=== PATIENT | male | born 1960 | race Caucasian/White ===

== ENCOUNTER → 2018-10-18 | Outpatient (CLI) | payer OTHER ==
--- NOTE | 2018-10-18 14:10 | XR ---
EXAMINATION TYPE: XR sinus DATE OF EXAM: 10/18/2018 CLINICAL HISTORY: Facial pain , headache. TECHNIQUE: Haque, Wiley, and lateral image of the skull are obtained. COMPARISON: None. FINDINGS: Osseous structures are intact. There does appear to be mucosal thickening involving the lef t maxillary sinus. Slight nasal septal deviation noted. No definite air-fluid level seen. IMPRESSION: Correlate for left maxillary sinusitis.
== END | disposition home or self-care (01) ==
LOC: RADXRMAIN 13:43
PROVIDERS: ATTEND Nurse Practitioner Family
DX: J01.00 Acute maxillary sinusitis, unspecified (principal)
CPT/HCPCS: 70220

== ENCOUNTER 2019-12-04 17:25 | Inpatient (IN) | payer OTHER ==
[2019-12-04 18:14] LABS: Basophils # (A) 0.1 k/uL (0-0.2); Basophils % (A) 1 %; Eosinophils # (A) 0.3 k/uL (0-0.7); Eosinophils % (A) 3 %; HCT 49.7 % (39.0-53.0); HGB 16.7 gm/dL (13.0-17.5); Lymphocytes # (A) 2.5 k/uL (1.0-4.8); Lymphocytes % (A) 25 %; MCH 29.8 pg (25.0-35.0); MCHC 33.5 g/dL (31.0-37.0); MCV 88.8 fL (80.0-100.0); Mean Platelet Volume 7.4; Monocytes # (A) 0.7 k/uL (0-1.0); Monocytes % (A) 7 %; Neutrophils # (A) 6.3 k/uL (1.3-7.7); Neutrophils % (A) 63 %; Platelet Count 233 k/uL (150-450); RDW 14.5 % (11.5-15.5)
[2019-12-04 18:27] LABS: Albumin 4.3 g/dL (3.5-5.0); Calcium 9.8 mg/dL (8.4-10.2); Magnesium 2.4 mg/dL (1.6-2.3); Partial Thromboplastin Time 23.2 sec (22.0-30.0); Potassium 4.1 mmol/L (3.5-5.1); Prothrombin Time 10.5 sec (9.0-12.0); Total Bilirubin 0.8 mg/dL (0.2-1.3)
[2019-12-04] MEDS ORDERED: LABETALOL 5 MG/ML VIAL MDV IVP STA (18:28)
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
--- NOTE | 2019-12-04 19:02 | XR ---
EXAMINATION: XR chest 2V DATE AND TIME: 12/04/2019 6:02 PM CLINICAL INDICATION: PHH; Chest Pain dyspnea TECHNIQUE: Departmental protocol COMPARISON: 07/15/2015 FINDINGS: The lungs are clear. The pleural spaces are negative. The cardiac silhouette is not enlarged. The skeletal structures and soft tissues are negative for acute findings. IMPRESSION: NO ACUTE PROCESS.
[2019-12-04] MEDS ORDERED: ASPIRIN 325 MG TAB PO STA (19:07)
[2019-12-04] MEDS ORDERED: HEPARIN SODIUM,PORCINE 5,000 UNIT/ML 1 ML VIAL IV ONE (19:07)
[2019-12-04] MEDS ORDERED: HEPARIN SODIUM,PORCINE 5,000 UNIT/ML 1 ML VIAL IV PRN (19:07)
[2019-12-04] MEDS ORDERED: NITROGLYCERIN SL TABS 0.4 MG TAB SUBLINGUAL PRN (19:21)
[2019-12-04] MEDS ORDERED: MORPHINE SULFATE 2 MG/ML SYRINGE IVP PRN (19:21)
--- NOTE | 2019-12-04 19:43 | CT ---
EXAMINATION TYPE: CT angio chest with contrast and with 3-D reconstruction renderings DATE OF EXAM: 12/04/2019 6:57 PM COMPARISON: Chest radiographs 12/04/2019 HISTORY: chest pain and SOB CT DLP: 669.7 mGycm Automated exposure control for dose reduction was used. CONTRAST: CTA scan of the thorax is performed with IV Contrast, patient injected with 100 mL of Isovu e 370, pulmonary embolism protocol. Three-D renderings. FINDINGS: LUNGS AND PLEURAL SPACES: The airways are unremarkable. The lungs are bilaterally clear and well expa nded with the exception of a nonspecific 2.2 cm mean diameter zone of groundglass opacity in the medi al right lower lobe seen on axial images 103 through 115. The pleural spaces are negative. MEDIASTINUM: There is satisfactory enhancement of the pulmonary artery and its branches; there is no CT evidence for pulmonary embolism. The aorta is unremarkable. There is no cardiomegaly, but there is evidence of left ventricular hypertrophy and multifocal coronary calcifications. Pericardial space i s negative. There is no incidental mass or adenopathy. OTHER: No additional significant abnormality is seen. IMPRESSION: 1. NEGATIVE FOR PULMONARY EMBOLISM. 2. FOCAL 2.2 CM DIAMETER NONSPECIFIC GROUNDGLASS OPACITY IN THE MEDIAL RIGHT LOWER LOBE. Incidental: Multifocal Coronary Calcifications With LVH.
[2019-12-04] MEDS: HEPARIN SOD,PORK IN 0.45% NACL 25,000 UNIT in 0.45% NACL 1 250ML.BAG IV SCH (19:50)
[2019-12-04] MEDS ORDERED: NICOTINE 21MG/24HR PATCH TRANSDERM STA (21:15)
[2019-12-04] MEDS: METOPROLOL TARTRATE 25 MG TAB PO SCH (22:09)
[2019-12-04] MEDS: ATORVASTATIN 40 MG TAB PO SCH (22:09)
[2019-12-05 08:04] LABS: Basophils # (A) 0.1 k/uL (0-0.2); Basophils % (A) 1 %; Eosinophils # (A) 0.2 k/uL (0-0.7); Eosinophils % (A) 3 %; HCT 51.1 % (39.0-53.0); HGB 16.5 gm/dL (13.0-17.5); Lymphocytes # (A) 2.1 k/uL (1.0-4.8); Lymphocytes % (A) 28 %; MCH 29.4 pg (25.0-35.0); MCHC 32.4 g/dL (31.0-37.0); MCV 90.7 fL (80.0-100.0); Mean Platelet Volume 7.4; Monocytes # (A) 0.5 k/uL (0-1.0); Monocytes % (A) 6 %; Neutrophils # (A) 4.5 k/uL (1.3-7.7); Neutrophils % (A) 60 %; Platelet Count 231 k/uL (150-450); RBC 5.64 m/uL (4.30-5.90); RDW 14.6 % (11.5-15.5); WBC 7.6 k/uL (3.8-10.6)
[2019-12-05 08:17] LABS: Cholesterol 155 mg/dL (<200); HDL Cholesterol 32 mg/dL (40-60); LDL Cholesterol,Calculated 106 mg/dL (0-99); Triglycerides 84 mg/dL (<150)
[2019-12-05] MEDS: ASPIRIN 325 MG TAB PO SCH (08:30)
[2019-12-05] MEDS: METOPROLOL TARTRATE 25 MG TAB PO SCH ×2 (08:30→20:14)
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
--- NOTE | 2019-12-05 10:46 | ECHOF ---
Referral Reason:NSTEMI MEASUREMENTS -------- HEIGHT: 190.5 cm WEIGHT: 112.5 kg BP: 117/77 RVIDd: 3.6 cm (< 3.3) IVSd: 1.6 cm (0.6 - 1.1) LVIDd: 4.5 cm (3.9 - 5.3) LVPWd: 1.3 cm (0.6 - 1.1) IVSs: 2.2 cm LVIDs: 2.7 cm LVPWs: 1.8 cm LA Diam: 3.5 cm (2.7 - 3.8) LAESV Index (A-L): 25.48 ml/m Ao Diam: 3.7 cm (2.0 - 3.7) AV Cusp: 2.6 cm (1.5 - 2.6) MV EXCURSION: 13.883 mm (> 18.000) MV EF SLOPE: 38 mm/s (70 - 150) EPSS: 0.6 cm MV E Jose: 0.77 m/s MV DecT: 216 ms MV A Jose: 0.75 m/s MV E/A Ratio: 1.02 RAP: 5.00 mmHg RVSP: 33.02 mmHg FINDINGS -------- Resting bradycardia (HR<60bpm). This was a technically adequate study. The left ventricular size is normal. There is moderate concentric left ventricular hypertrophy. O verall left ventricular systolic function is normal with, an EF between 60 - 65 %. The right ventricle is mildly enlarged. Normal LA size by volume 22+/-6 ml/m2. The right atrium is normal in size. Interatrial and interventricular septum intact. The aortic valve is trileaflet and appears structurally normal. There is trace mitral regurgitation. Mild tricuspid regurgitation present. Right ventricular systolic pressure is normal at < 35 mmHg. Trace/mild (physiologic) pulmonic regurgitation. The aortic root size is normal. There is no pericardial effusion. CONCLUSIONS -------- 1. The left ventricular size is normal. 2. There is moderate concentric left ventricular hypertrophy. 3. Overall left ventricular systolic function is normal with, an EF between 60 - 65 %. 4. The right ventricle is mildly enlarged. 5. There is trace mitral regurgitation. 6. Mild tricuspid regurgitation present. 7. Trace/mild (physiologic) pulmonic regurgitation. 8. There is no pericardial effusion. KILN FURNITURE CASTER: Harper Vidales RDCS
[2019-12-05] MEDS ORDERED: LORazepam 0.5 MG TAB PO STA (11:52)
[2019-12-05] MEDS ORDERED: SODIUM CHLORIDE 0.9% 500 ML 500 ML IV ONE (12:58)
[2019-12-05] MEDS ORDERED: LIDOCAINE 1% INJ 10MG/ML (20 ML MDV) ONE (13:08)
[2019-12-05] MEDS ORDERED: MIDAZOLAM 2 MG/2 ML VIAL IVP ONE ×2 (13:30→13:35)
[2019-12-05] MEDS ORDERED: LIDOCAINE 1% INJ 10MG/ML (20 ML MDV) SQ ONE (13:34)
[2019-12-05] MEDS ORDERED: CLOPIDOGREL 75 MG TAB ONE (13:46)
[2019-12-05] MEDS ORDERED: BIVALIRUDIN BOLUS 250 MG/50 ML IV ONE (13:48)
[2019-12-05] MEDS ORDERED: BIVALIRUDIN 250 MG in SODIUM CHLORIDE 0.9% 50 ML IV ONE (13:49)
[2019-12-05] MEDS ORDERED: CLOPIDOGREL 75 MG TAB PO ONE (13:49)
[2019-12-05] MEDS: NITROGLYCERIN 1000MCG/10ML SYRINGE INTRACORON ONE ×2 (13:55→14:00)
[2019-12-05] MEDS ORDERED: IOPAMIDOL-370 100ML BTL INJ ONE ×2 (13:57→14:08)
[2019-12-05] MEDS ORDERED: NITROGLYCERIN SL TABS 0.4 MG TAB SUBLINGUAL PRN (14:21)
[2019-12-05] MEDS ORDERED: ATROPINE SULFATE 0.1 MG/ML 10ML SYRINGE IV PRN (14:21)
[2019-12-05] MEDS ORDERED: MAG HYDROX/AL HYDROX/SIMETH 30 ML CUP PO PRN (14:21)
[2019-12-05] MEDS ORDERED: RX INFO: IV CONTRAST WAS GIVEN 1 EACH MISC MISCELLANE PRN (14:21)
[2019-12-05] MEDS ORDERED: ZOLPIDEM 5 MG TAB PO PRN (14:21)
[2019-12-05] MEDS ORDERED: SODIUM CHLORIDE 0.9% 1,000 ML IV SCH (14:30)
--- NOTE | 2019-12-05 16:45 | CC ---
CARDIAC CATHETERIZATION REPORT DATE OF SERVICE: 12/05/2019 PERFORMING PHYSICIAN: Mykel Duong MD. PROCEDURE PERFORMED: 1. Selective right and left coronary angiogram. 2. Left heart catheterization. 3. Successful stenting of the distal right coronary artery using 2.5 x 12 mm Xience DACIA with an excellent angiographic results. INDICATION: This is a 59-year-old gentleman with hypertension and dyslipidemia who presented to the hospital with chest discomfort and ruled in for acute coronary syndrome. He is a smoker as well. Because of that, a heart catheterization was advised. APPROACH: Right common femoral artery. COMPLICATION: None. LEVEL OF SEDATION: Moderate with sedation length of 33 minutes. PROCEDURE DESCRIPTION: After obtaining an informed consent, the patient was brought to the cardiac laborer electroplating. The right common femoral artery was cannulated using micropuncture technique and a micropuncture wire passed easily, then I placed a 6-Indonesian sheath at the right common femoral artery. After that, I did selective right and left coronary angiogram. That was performed with a JR4 and JL4 catheters. After that, I did intervene on the RCA, please see a separate paragraph for that. After that, I did left heart catheterization. SELECTIVE CORONARY ANGIOGRAM: 1. The right coronary artery is a large caliber vessel and it is a dominant vessel. The RCA in the proximal and midportion appeared to have mild disease only but distally just before the bifurcation into PDA and PLV branches has a critical lesion appeared to be in the range of 99.9%. The RCA after that bifurcates into PDA and PLV branches. The PDA is diffusely diseased up to multiple segments in the range of 80%. But the PDA becomes small caliber vessel. 2. The left main is angiographically normal, it bifurcates into LCX and LAD. 3. The LCX is a large caliber vessel, it is a nondominant vessel. The proximal LCX appeared to have mild disease only and gives rise into an OM1 what appeared to have mild disease only. The mid circumflex appeared to have mild disease only as well. It gives rise into second OM which appeared to have mild diffuse disease. The circumflex distal to the second OM has diffuse disease up to about 60% to 70%. 4. The LAD, the proximal LAD appeared to have mild disease only. The mid and distal LAD appeared to have mild disease only as well. The LAD gives rise into first and second diagonal branches, both appeared to be angiographically normal. 5. HEMODYNAMICS: The LVEDP was 10 to 12 mmHg without significant gradient across the aortic valve. 6. PCI of the RCA: Anticoagulation was initiated using Angiomax. Subsequently, I did engage the RCA using JR4 guide. I did wire it using a whisper wire. After that, I did balloon angioplasty using 2.0 x 12 mm balloon before I deployed 2.5 x 12 mm stent where the stent was positioned under fluoroscopy guidance and deployed under 14 atmospheres for 20 seconds with the following angiogram showed excellent angiographic results and the procedure was completed without any complication. CONCLUSION: 1. Acute [id number]-[id number] myocardial infarction in this 59-year-old gentleman with history of hypertension and dyslipidemia and smoking. 2. Critical disease involving the distal RCA just before the bifurcation into PDA and PLV branches. 3. Intermediate to severe disease involving the left circumflex. 4. Normal left main coronary artery. 5. [id number] disease involving the LAD. POSTPROCEDURE MANAGEMENT: 1. Dual anti-platelet therapy. 2. Risk factor modifications. 3. Follow up with the patient. MMODL / IJN: [id number] /
--- NOTE | 2019-12-05 19:41 | XR ---
EXAMINATION TYPE: XR cervical spine comp DATE OF EXAM: 12/05/2019 COMPARISON: NONE HISTORY: Neck pain TECHNIQUE: 5 views FINDINGS: Vertebra have fairly normal spacing and alignment. Posterior elements are intact. Neural fo ramina are widely patent. Atlantoaxial facet joint is normal. There are no cervical ribs. IMPRESSION: Negative cervical spine exam.
--- NOTE | 2019-12-05 19:42 | XR ---
EXAMINATION TYPE: XR thoracic spine complete DATE OF EXAM: 12/05/2019 COMPARISON: NONE HISTORY: Back pain TECHNIQUE: 3 views FINDINGS: There is spurring in the mid thoracic spine. I see no significant compression deformity. Th ere is no paraspinal mass. Posterior elements are intact. There is slight increased thoracic kyphosis . IMPRESSION: Mild spondylotic changes. No fracture seen. No significant change compared to 07/15/2015 chest x-ray.
[2019-12-05] MEDS: HEPARIN SOD,PORK IN 0.45% NACL 25,000 UNIT in 0.45% NACL 1 250ML.BAG IV SCH (20:11)
[2019-12-05] MEDS: ATORVASTATIN 40 MG TAB PO SCH (20:14)
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
[2019-12-06 00:37] VITALS: RESP 18
[2019-12-06 07:16] LABS: Basophils # (A) 0.1 k/uL (0-0.2); Basophils % (A) 1 %; Eosinophils # (A) 0.2 k/uL (0-0.7); Eosinophils % (A) 2 %; HCT 50.7 % (39.0-53.0); HGB 16.4 gm/dL (13.0-17.5); Lymphocytes # (A) 2.1 k/uL (1.0-4.8); Lymphocytes % (A) 25 %; MCH 29.6 pg (25.0-35.0); MCHC 32.3 g/dL (31.0-37.0); MCV 91.6 fL (80.0-100.0); Mean Platelet Volume 7.4; Monocytes # (A) 0.6 k/uL (0-1.0); Monocytes % (A) 7 %; Neutrophils # (A) 5.4 k/uL (1.3-7.7); Neutrophils % (A) 62 %; Platelet Count 214 k/uL (150-450); RBC 5.54 m/uL (4.30-5.90); RDW 14.4 % (11.5-15.5); WBC 8.6 k/uL (3.8-10.6)
[2019-12-06 07:20] LABS: African American GFR (CKD) >90 (>60 ml/min/1.73 sqM); Non-African American GFR(CKD) 86 (>60 ml/min/1.73 sqM)
--- NOTE | 2019-12-06 07:43 | P.PN ---
Subjective Progress Note Date: 12/06/19 Principal diagnosis: Coronary artery disease This is a pleasant 59-year-old gentleman with history of smoking who was admitted to the hospital with chest discomfort and ruled in for acute non-ST elevated a heart catheterization was performed and revealed critical disease involving the RCA. He underwent successful stenting of the RCA with an excellent angiographic results and without any complication from right groin approach. The right groin is soft and nontender and without any bruises. The patient was seen today. He denies any chest pain or chest discomfort but does have shortness of breath with exertion. Denies any dizziness or lightheadedness or syncope. He is on dual antiplatelet therapy. I am going to obtain a BNP and also chest x-ray. I would recommend monitoring the patient for additional 24 hours since he is enzymes came in to be slightly elevated and follow-up with the patient. Please note that the echo showed normal LV function. Objective - Vital Signs Vital signs: Vital Signs Temp 98.1 F 12/06/19 04:00 Pulse 68 12/06/19 04:00 Resp 18 12/06/19 04:00 BP 136/73 12/06/19 04:00 Pulse Ox 97 12/06/19 04:00 Intake & Output 12/05/19 12/06/19 12/06/19 18:59 06:59 18:59 Intake Total 412.646 Balance 412.646 Weight 111.4 kg Intake: IV 325 Intake, IV Titration 87.646 Amount Heparin Sod,Pork in 0.45% 87.646 NaCl 25,000 unit In 0.45 % NaCl 1 250ml.bag @ 8. 818 UNITS/KG/HR 9.999 mls /hr IV .Q24H [facility] Rx#: [id number] Other: Voiding Method Toilet Toilet Urinal Urinal # Voids 1 3 - Constitutional General appearance: Present: no acute distress - Respiratory Respiratory: bilateral: diminished - Cardiovascular Rhythm: regular Heart sounds: normal: S1, S2 - Labs CBC & Chem 7: 12/06/19 06:12 12/06/19 06:12 Labs: Abnormal Lab Results - Last 24 Hours (Table) 12/05/19 12/05/19 Range/Units 07:36 07:36 APTT 37.9 H (22.0-30.0) sec LDL Cholesterol, Calc 106 H (0-99) mg/dL HDL Cholesterol 32 L (40-60) mg/dL Assessment and Plan Assessment: Assessment #1 acute non-ST patient myocardial infarction. Status post PCI of the RCA #2 significant history of smoking #3 hypertension #4 dyslipidemia Plan #1 continue the current medical regimen including dual antiplatelet therapy #2 the echo revealed normal LV function #3 obtain a chest x-ray and BNP #4 monitor the patient for additional 24 hours
[2019-12-06] MEDS: ASPIRIN 325 MG TAB PO SCH (08:12)
[2019-12-06] MEDS: METOPROLOL TARTRATE 25 MG TAB PO SCH (08:12)
[2019-12-06 08:32] VITALS: TEMP 97.6
[2019-12-06] MEDS ORDERED: CLOPIDOGREL 75 MG TAB PO SCH (09:00)
--- NOTE | 2019-12-06 09:55 | XR ---
EXAMINATION TYPE: XR chest 1V DATE OF EXAM: 12/06/2019 COMPARISON: 12/04/2019 HISTORY: Shortness of breath TECHNIQUE: Single frontal view of the chest is obtained. FINDINGS: The heart size prominent hypertrophic change of the spine with slight curvature. No overt failure or pneumothorax. No sizable pleural effusion. No consolidative pneumonia. Underlying COPD simeon pected. IMPRESSION: 1. Cardiomegaly correlate for COPD with no acute infiltrate.
[2019-12-06 11:32] VITALS: BMI 30.7
[2019-12-06 11:50] VITALS: BP 135/90; PULSE 60
--- NOTE | 2019-12-06 21:41 | P.DS ---
Providers Date of admission: 12/04/19 19:21 Expected date of discharge: 12/06/19 Attending physician: Elio Gregg Consults: 12/04/19 19:21 Consult Physician Urgent Consulting Provider: Walter Seay Consult Reason/Comments: NSTEMI Do you want consulting provider notified?: Already Contacted 12/05/19 14:21 Consult Physician Routine Consulting Provider: [facility] Consult Reason/Comments: Post Interventional patient Do you want consulting provider notified?: Already Contacted Primary care physician: Cam [facility] Course: Chief Complaint: Chest pain History of presenting complaint: This is a 59-year-old patient of Dr. Dr. Fortune. Patient presents with the chest pain on and off for about 3 weeks. Describes it in the mid upper back and salt and continue to the front off and on. Sometimes feels rather sharp. Some shortness of breath some dizziness some tiredness. Pain has been progressive. No prior cardiac history. Troponins were positive. Rule in for acute non-Q wave [place]. Found to have critical disease involving distal RCA and severe disease involving the left circumflex. Stenting with a DACIA of RCA was done Today-up and about. Bit anxious. No chest pain or shortness of breath. Cleared by cardiology. Discussed at length with the patient. Discussion and discharge planning more than 35 minutes Consultation: Dr. Oliva from cardiology Physical examination: VITAL SIGNS: 97.6, 58, 18, 135/90, 95% room air GENERAL: Sitting up, anxious. EYES: Pupils equal. Conjunctiva normal. HEENT: External appearance of nose and ears normal, oral cavity grossly normal. NECK: JVD not raised; masses not palpable. HEART: First and second heart sounds are normal; no edema. LUNGS: Respiratory rate increased, decreased breath sounds. ABDOMEN: Soft, nontender, liver spleen not palpable, no masses palpable. PSYCH: [Alert and oriented x3; mood and affect - anxious l. INVESTIGATIONS, reviewed in the clinical context: White count and hemoglobin 16.7 platelets 233 potassium 4.1 creatinine 1.07 Troponin I 0.095, 0.138, 0.234 LDL 106 EKG tracing personally reviewed by me-sinus rhythm with some ST segment changes in inferolateral leads Chest x-ray film personally reviewed by me-no obvious abnormality Chest CTA-negative for PE, 2.2 cm nonspecific groundglass abased in the medial right lobe Assessment: -Acute non-ST elevation myocardial infarction -Chronic nicotine dependence patient cigarette smoker -Anxiety not otherwise specified -IV heparin monitoring -Drug-eluting stent to RCA Disposition: Home Patient Condition at Discharge: Stable Plan - Discharge Summary New Discharge Prescriptions: New Aspirin 81 mg PO DAILY #30 chewable Atorvastatin [Lipitor] 80 mg PO HS #30 tab Metoprolol Tartrate [Lopressor] 25 mg PO BID #60 tab Losartan/Hydrochlorothiazide [Losartan-Hctz 50-12.5 mg Tab] 1 tab PO HS #30 tab Nitroglycerin Sl Tabs [Nitrostat] 0.4 mg SUBLINGUAL Q5M PRN #25 tab PRN Reason: Chest Pain Clopidogrel [Plavix] 75 mg PO DAILY #30 tab Continue Multivitamins, Thera [Multivitamin (formulary)] 1 tab PO DAILY Ascorbic Acid [Vitamin C] 1,000 mg PO DAILY Discontinued Ibuprofen [Motrin Ib] 1,000 mg PO BID PRN PRN Reason: PINCHED NERVES Aspirin EC [Ecotrin] 650 mg PO ONCE PRN PRN Reason: Chest Pain Discharge Medication List Ascorbic Acid [Vitamin C] 1,000 mg PO DAILY 12/04/19 [History] Multivitamins, Thera [Multivitamin (formulary)] 1 tab PO DAILY 12/04/19 [History] Aspirin 81 mg PO DAILY #30 chewable 12/06/19 [Rx] Atorvastatin [Lipitor] 80 mg PO HS #30 tab 12/06/19 [Rx] Clopidogrel [Plavix] 75 mg PO DAILY #30 tab 12/06/19 [Rx] Losartan/Hydrochlorothiazide [Losartan-Hctz 50-12.5 mg Tab] 1 tab PO HS #30 tab 12/06/19 [Rx] Metoprolol Tartrate [Lopressor] 25 mg PO BID #60 tab 12/06/19 [Rx] Nitroglycerin Sl Tabs [Nitrostat] 0.4 mg SUBLINGUAL Q5M PRN #25 tab 12/06/19 [Rx] Follow up Appointment(s)/Referral(s): Cam Fortune DO [Primary Care Provider] - 1-2 days Mykel Duong MD [STAFF PHYSICIAN] - 1 Week (Office is closed please call sunday to make f/u appt. with Dr Duong) Patient Instructions/Handouts: Heart Attack (DC), How to Stop Smoking (DC), Heart Catheterization (DC) Discharge Disposition: HOME SELF-CARE
== END 2019-12-06 12:27 | disposition home or self-care (01) | DRG 247 ==
LOC: EC 17:25 → 3SCARD 19:21
PROVIDERS: ADMIT Hospitalist; ATTEND Hospitalist
PROC: 027034Z Dilation of Coronary Artery, One Artery with Drug-eluting Intraluminal Device, Percutaneous Approach (ICD-10-PCS; principal; 2019-12-05 12:55)
PROC: 4A023N7 Measurement of Cardiac Sampling and Pressure, Left Heart, Percutaneous Approach (ICD-10-PCS; principal; 2019-12-05 12:55)
PROC: B2111ZZ Fluoroscopy of Multiple Coronary Arteries using Low Osmolar Contrast (ICD-10-PCS; principal; 2019-12-05 12:55)
DX: I21.4 Non-ST elevation (NSTEMI) myocardial infarction (principal); I11.9 Hypertensive heart disease without heart failure; E78.5 Hyperlipidemia, unspecified; I25.10 Atherosclerotic heart disease of native coronary artery without angina pectoris; F17.210 Nicotine dependence, cigarettes, uncomplicated; Z71.6 Tobacco abuse counseling; Z79.82 Long term (current) use of aspirin; Z79.899 Other long term (current) drug therapy; Z87.81 Personal history of (healed) traumatic fracture; Z90.89 Acquired absence of other organs; Z98.890 Other specified postprocedural states; Z87.828 Personal history of other (healed) physical injury and trauma; F41.9 Anxiety disorder, unspecified; I48.0 Paroxysmal atrial fibrillation
CPT/HCPCS: 36415; 71045; 71046; 71275; 72050; 72072; 80053; 80061; 82565; 83690; 83735; 83880; 84484; 85025; 85610; 85730; 93005; 93306; 93458; 96374; 96375; 99291

== ENCOUNTER 2021-12-03 10:25 | Inpatient (IN) | payer OTHER ==
[2021-12-03] MEDS ORDERED: ASPIRIN 81 MG PO STA (10:31)
[2021-12-03] MEDS ORDERED: NITROGLYCERIN OINT 1 INCH/GM PACKET TOPICAL STA (10:31)
[2021-12-03] MEDS ORDERED: NITROGLYCERIN SL TABS 0.4 MG TAB SUBLINGUAL STA ×2 (10:31)
[2021-12-03 10:33] LABS: Glucose,Whole Blood 154 mg/dL (70-110)
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
[2021-12-03 10:43] LABS: Basophils # (A) 0.1 k/uL (0-0.2); Basophils % (A) 1 %; Eosinophils # (A) 0.2 k/uL (0-0.7); Eosinophils % (A) 2 %; HGB 17.5 gm/dL (13.0-17.5); Lymphocytes # (A) 2.7 k/uL (1.0-4.8); Lymphocytes % (A) 24 %; MCH 29.6 pg (25.0-35.0); MCV 89.9 fL (80.0-100.0); Mean Platelet Volume 7.6; Monocytes # (A) 0.7 k/uL (0-1.0); Monocytes % (A) 6 %; Neutrophils # (A) 7.4 k/uL (1.3-7.7); Neutrophils % (A) 66 %; Platelet Count 295 k/uL (150-450); RDW 13.7 % (11.5-15.5); WBC 11.3 k/uL (3.8-10.6)
[2021-12-03] MEDS ORDERED: ONDANSETRON 4 MG/2 ML VIAL IVP STA (10:49)
[2021-12-03] MEDS ORDERED: ATORVASTATIN 80 MG TAB PO STA (10:49)
[2021-12-03] MEDS ORDERED: NITROGLYCERIN-D5W PMX 50 MG in DEXTROSE/WATER 1 250ML.BAG IV ONE (10:50)
[2021-12-03] MEDS ORDERED: HEPARIN SODIUM 1,000 UN/ML (10ML VL) IV ONE ×2 (10:50→11:45)
[2021-12-03 10:53] LABS: Albumin 4.7 g/dL (3.5-5.0); Calcium 10.6 mg/dL (8.4-10.2); Magnesium 2.4 mg/dL (1.6-2.3); Potassium 4.2 mmol/L (3.5-5.1); Total Bilirubin 1.2 mg/dL (0.2-1.3); Total Protein 7.8 g/dL (6.3-8.2)
[2021-12-03 10:58] LABS: INR 1.1 (<1.2); Prothrombin Time 11.8 sec (9.0-12.0)
--- NOTE | 2021-12-03 11:08 | XR ---
EXAMINATION TYPE: XR chest 1V portable DATE OF EXAM: 12/03/2021 10:47 AM COMPARISON: Chest radiographs from 06/06/2021 TECHNIQUE: XR chest 1V portable Frontal view of the chest. CLINICAL INDICATION:Male, 61 years old with history of Chest Pain; FINDINGS: Lungs/Pleura: Low lung volumes are present. There is no evidence of pleural effusion, focal consolida tion, or pneumothorax. Pulmonary vascularity: Unremarkable. Heart/mediastinum: Cardiomediastinal silhouette is prominent in size. Musculoskeletal: No acute osseous pathology. IMPRESSION: Low lung volumes without convincing acute cardiopulmonary disease/process.
[2021-12-03 11:09] LABS: Partial Thromboplastin Time 21.1 sec (22.0-30.0)
[2021-12-03] MEDS ORDERED: VERAPAMIL 2.5 MG/ML 2 ML AMP ONE (11:22)
[2021-12-03] MEDS ORDERED: HEPARIN SODIUM 1,000 UN/ML (10ML VL) ONE (11:22)
[2021-12-03] MEDS ORDERED: MIDAZOLAM 2 MG/2 ML VIAL IV ONE (11:36)
[2021-12-03] MEDS ORDERED: LIDOCAINE 1% INJ 10MG/ML (30 ML VIAL-PF) SQ ONE (11:38)
[2021-12-03] MEDS ORDERED: fentaNYL (PF) 50 MCG/ML 2 ML AMP ONE (11:38)
[2021-12-03] MEDS: fentaNYL (PF) 50 MCG/ML 2 ML AMP IV ONE ×2 (11:39→12:15)
[2021-12-03] MEDS ORDERED: SODIUM CHLORIDE 0.9% 1,000 ML IV ONE (11:41)
[2021-12-03] MEDS ORDERED: PRASUGREL 10 MG TAB ONE (11:47)
[2021-12-03] MEDS ORDERED: PRASUGREL 10 MG TAB PO ONE (11:52)
[2021-12-03] MEDS ORDERED: NITROGLYCERIN 1000MCG/10ML SYRINGE INTRACORON ONE (12:06)
[2021-12-03] MEDS ORDERED: niCARdipine Syringe (1,000 mcg/10 mL) INTRACORON ONE (12:06)
[2021-12-03] MEDS ORDERED: IOPAMIDOL-370 125ML BTL INJ ONE (12:19)
[2021-12-03] MEDS ORDERED: ASPIRIN 81 MG PO SCH (14:00)
[2021-12-03] MEDS: METOPROLOL SUCCINATE (ER) 25 MG TAB.ER.24H PO SCH (14:38)
[2021-12-03] MEDS: SODIUM CHLORIDE 0.9% 1,000 ML IV SCH (14:38)
--- NOTE | 2021-12-03 17:04 | P.PCN ---
Date of Procedure: 12/03/21 Operative Findings: CARDIAC CATHETERIZATION AND PERCUTANEOUS CORONARY INTERVENTION PERFORMING PHYSICIAN: Mykel Duong MD, [facility] PROCEDURE PERFORMED: 1. Selective right and left coronary angiogram 2. Left heart catheterization 3. Successful stenting of proximal RCA using 5.0 x 18 mm Xience DACIA with an excellent angiographic results 4. Successful stenting of the mid RCA using 4.0 x 23 mm Xience DACIA with an excellent angiographic results 5. Aspiration thrombectomy from the right coronary artery 6. Selective right common femoral artery angiogram INDICATION: Acute chronic syndrome in this 61-year-old gentleman who is known to have CAD with prior stenting of the RCA. He continues to have ongoing chest discomfort. COMPLICATION: None APPROACH: Right common femoral artery LEVEL OF SEDATION: Moderate with the sedation time off 40 minutes PROCEDURE DESCRIPTION: After obtaining an informed consent the patient was brought to the cardiac lab coordinator. The right common femoral artery was cannulated using micropuncture technique, the micropuncture wire passed easily then I placed initially an 11 cm 6-[place] Islander sheath but subsequently because of severe tortuosity I have placed at 23 cm 6-[place]er sheath. Subsequently I did selective right and left coronary angiogram with JR4 and JL4 catheters. After that I did intervene on the right coronary artery. By the end I did selective right common femoral artery injury SELECTIVE CORONARY ANGIOGRAM: The right coronary artery: Is a large caliber vessel and a dominant vessel. The RCA is occluded in the mid portion Left main: Calcified was mild disease distally in the range of 20-30%. Bifurcates into a LCx and LAD The left circumflex: Is a large caliber vessel and codominant vessel. The proximal LCx is calcified was mild disease only. Gives rises into a large OM which has a high takeoff and appears to have diffuse moderate disease. The circumflex after that appeared to be diffusely diseased and distally bifurcates into PDA and PLV branches. Both appear to have intermediate to severe diffuse disease. The left anterior descending artery: Is a large caliber vessel. The LAD has mild to moderate diffuse disease as well. Gives rises into a diagonal branch which also has mild disease only. PCI OF THE RCA: Anticoagulation initiated using heparin with continuous ACT monitoring. Using an a.l. 0.75 guiding catheter I engaged the right coronary artery. I rewire the RCA using a run-through wire. Aspiration thrombectomy was performed. Subsequently I did balloon angioplasty of the RCA using 3.0 mm balloon. Subsequently in the proximal RCA I deployed 5.0 x 18 mm stent. The following angiogram showed good angiographic results proximally but the lesion in the midportion appears to be tight and no flow in the distal RCA. At that point I took 2.0 mm balloon and I did balloon angioplasty of the distal RCA and also I gave the patient nicardipine and nitroglycerin. I was able to restore the flow distally but the lesion in the midportion appears to be tight and for that reason I decided to stent that lesion. I deployed a 4.0 x 23 mm stent where the stent was positioned under fluoroscopy guidance and deployed under its nominal pressure. The area of overlap was also dilated. The following angiogram showed good angiographic results and the procedure was completed without any complicat ion CONCLUSION: 1. Acute coronary syndrome in this 61-year-old gentleman was known CAD and prior stenting of the RCA 2. Acute total occlusion of the RCA. I performed successful stenting of the mid and proximal RCA 3. Diffuse [id number] disease involving the left coronary system POSTPROCEDURE MANAGEMENT: #1 dual antiplatelet therapy for 12 more #2 aggressive cholesterol control #3 follow-up with the patient
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
[2021-12-03] MEDS: ATORVASTATIN 80 MG TAB PO SCH (21:06)
[2021-12-04] MEDS: SODIUM CHLORIDE 0.9% 1,000 ML IV SCH (07:33)
--- NOTE | 2021-12-04 07:46 | P.PN ---
Subjective Progress Note Date: 12/04/21 Principal diagnosis: Acute coronary event This is a 61-year-old gentleman with a coronary artery disease and prior stenting of the RCA as well as hypertension and dyslipidemia as well as paroxysmal atrial fibrillation presented to the emergency department with chest discomfort. Unfortunately and for some reasons he stopped taking all his medications 3 days ago. The exact reason is unknown. His EKG in the emergency department was concerning for acute coronary syndrome. Because he continues to have ongoing chest discomfort and because of the EKG changes an emergent heart catheterization was advised and revealed occluded right coronary artery in the midportion was a large thrombus burden. The RCA has diffuse disease. Also his left coronary system has intermediate diffuse disease. The patient underwent successful stenting of the proximal and mid right coronary artery and also balloon angioplasty of the distal right coronary artery with a good angiographic results and SONY 3 flow. He tolerated the procedure very well. That was performed from the right groin. He was seen this morning. He is chest pain-free. He is hemodynamically stable. The right groin soft and nontender and without any bruises. He is on dual antiplatelet therapy along with high intensity statin along with metoprolol. I'm going to restart the patient back on oral anticoagulation for the atrial fibrillation with a smaller dose giving that he is on dual antiplatelet therapy at this point. Follow-up on the echocardiogram. Objective - Vital Signs Vital signs: Vital Signs Temp 97.8 F 12/04/21 00:00 Pulse 50 L 12/04/21 04:00 Resp 12 12/04/21 04:00 BP 123/86 12/04/21 04:00 Pulse Ox 96 12/04/21 04:00 FiO2 Intake & Output 12/03/21 12/04/21 12/04/21 18:59 06:59 18:59 Intake Total 1000 690 Output Total 1000 600 Balance 0 90 Weight 114.305 kg 114 kg Intake: IV 1000 450 0.9 450 450 Oral 240 Output: Urine 1000 600 Other: Voiding Method Urinal Urinal - Constitutional General appearance: Present: no acute distress - Respiratory Respiratory: bilateral: diminished - Cardiovascular Rhythm: regular Heart sounds: normal: S1, S2 Abnormal Heart Sounds: Present: systolic murmur - Labs CBC & Chem 7: 12/03/21 10:32 12/03/21 10:32 Labs: Abnormal Lab Results - Last 24 Hours (Table) 12/03/21 12/03/21 12/03/21 Range/Units 10:31 10:32 10:32 WBC 11.3 H (3.8-10.6) k/uL APTT 21.1 L (22.0-30.0) sec Creatinine (0.66-1.25) mg/dL Glucose (74-99) mg/dL POC Glucose (mg/dL) 154 H (70-110) mg/dL Calcium (8.4-10.2) mg/dL Magnesium (1.6-2.3) mg/dL 12/03/21 Range/Units 10:32 WBC (3.8-10.6) k/uL APTT (22.0-30.0) sec Creatinine 1.44 H (0.66-1.25) mg/dL Glucose 124 H (74-99) mg/dL POC Glucose (mg/dL) (70-110) mg/dL Calcium 10.6 H (8.4-10.2) mg/dL Magnesium 2.4 H (1.6-2.3) mg/dL Assessment and Plan Assessment: Assessment #1 acute coronary syndrome #2 status post PCI of the RCA #3 paroxysmal atrial fibrillation #4 hypertension #5 dyslipidemia Plan #1 the patient underwent successful stenting of the mid and proximal RCA #2 dual antiplatelet therapy along with high intensity statin #3 restart the patient back on oral anticoagulation for atrial fibrillation #4 follow-up on the echocardiogram #5 the patient can be transferred to the third floor #6 discharge in the next 24 hours
[2021-12-04] MEDS: APIXABAN 2.5 MG TABLET PO SCH ×2 (09:24→20:43)
[2021-12-04] MEDS: PRASUGREL 10 MG TAB PO SCH (09:24)
[2021-12-04] MEDS: ASPIRIN 81 MG PO SCH (09:24)
[2021-12-04] MEDS: METOPROLOL SUCCINATE (ER) 25 MG TAB.ER.24H PO SCH (09:24)
[2021-12-04] MEDS: NICOTINE 21MG/24HR PATCH TRANSDERM SCH (09:24)
[2021-12-04 13:32] LABS: Calcium 8.9 mg/dL (8.4-10.2); Potassium 3.8 mmol/L (3.5-5.1)
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
--- NOTE | 2021-12-04 18:03 | US ---
EXAMINATION TYPE: US kidneys/renal and bladder DATE OF EXAM: 12/04/2021 COMPARISON: CT Chest CLINICAL HISTORY: Evaluated for CK D. CKD, poor urine output per patient EXAM MEASUREMENTS: Right Kidney: 12.5 x 5.7 x 5.7 cm Left Kidney: 12.6 x 5.7 x 5.0 cm Right Kidney: No evidence of hydro/ hypoechoic lesion lower pole= 2.4 x 2.0 x 3.0 cm Left Kidney: No evidence of hydro/ hypoechoic lesion mid/medial= 3.2 x 3.1 x 3.3 cm Bladder: wnl Bilateral Jets seen: No IMPRESSION: There are bilateral renal cortical cysts. No hydronephrosis. No evidence of solid renal mass. No uret eral jets seen during the exam. No evidence of bladder mass.
[2021-12-04 18:49] LABS: Appearance,Urine Clear (Clear); Bilirubin,Urine Negative (Negative); Blood,Urine Negative (Negative); Color,Urine Light Yellow; Glucose,Urine (UA) Negative (Negative); Ketones,Urine Negative (Negative); Leukocyte Esterase,Urine Negative (Negative); Nitrite,Urine Negative (Negative); PH, Urine 6.5 (5.0-8.0); Protein,Urine Negative (Negative); Specific Gravity,Urine 1.007 (1.001-1.035); Urobilinogen,Urine <2.0 mg/dL (<2.0)
[2021-12-04] MEDS: ATORVASTATIN 80 MG TAB PO SCH (20:43)
--- NOTE | 2021-12-05 07:40 | P.PN ---
Subjective Progress Note Date: 12/05/21 PROGRESS NOTE The patient is a 61-year-old male with a known history of CAD, chronic tobacco use who presented with a acute myocardial infarction and was found to have an occluded RCA and underwent stenting of that vessel. He has a history of atrial fibrillation and prior stenting of the RCA in 2019. He has been followed as an outpatient with Dr. Duong. He's feeling well this morning, denies any chest discomfort. Hemodynamically stable. He denies any nausea or vomiting. His cardiac catheterization showed acutely occluded RCA with mild to moderate disease in the left system. Received a 5.0 x 18 and a 4.0 x 23 mm stent Medications: Aspirin, Effient, metoprolol succinate 12-1/2 mg daily, Lipitor 80 mg daily, Eliquis PHYSICAL EXAMINATION: Blood pressure 140/90 heart rate 67 LUNGS: Clear to auscultation HEART: Regular rate and rhythm, S1, S2. No S3. systolic ejection murmur ABDOMEN: Soft, nontender, no organomegaly EXTREMETIES: No edema LAB: Potassium 3.8, creatinine 1.26 IMPRESSION: 1. Status post acute inferior myocardial infarction with stenting of the RCA 2. Prior history of CAD and stenting of the RCA in 2019 3. History of hypertension 4. Chronic tobacco use 5. Renal function abnormalities PLAN: 1. Obtain an echocardiogram with Doppler 2. Increase physical activity 3. Follow renal functions 4. Add JUNO inhibitor 5. If stable discharged in 24 hours 6. Smoking cessation Objective - Vital Signs Vital signs: Vital Signs Temp 97.7 F 12/05/21 04:00 Pulse 67 12/05/21 04:00 Resp 16 12/05/21 04:00 BP 140/102 12/05/21 04:00 Pulse Ox 97 12/05/21 04:00 FiO2 Intake & Output 12/04/21 12/05/21 12/05/21 18:59 06:59 18:59 Weight 114.7 kg Other: Voiding Method Toilet Toilet # Voids 3 2 - Labs CBC & Chem 7: 12/03/21 10:32 12/04/21 13:14 Labs: Abnormal Lab Results - Last 24 Hours (Table) 12/04/21 Range/Units 13:14 Creatinine 1.26 H (0.66-1.25) mg/dL Glucose 101 H (74-99) mg/dL
[2021-12-05] MEDS: PRASUGREL 10 MG TAB PO SCH (08:25)
[2021-12-05] MEDS: ASPIRIN 81 MG PO SCH (08:25)
[2021-12-05] MEDS: NICOTINE 21MG/24HR PATCH TRANSDERM SCH (08:25)
[2021-12-05] MEDS: APIXABAN 2.5 MG TABLET PO SCH (08:25)
[2021-12-05] MEDS ORDERED: METOPROLOL SUCCINATE (ER) 25 MG TAB.ER.24H PO SCH (09:00)
[2021-12-05] MEDS ORDERED: lisinopriL 5 MG TAB PO SCH (09:00)
--- NOTE | 2021-12-05 11:32 | CA ---
Transthoracic Echo Report Name: Deejay Álvarez Age: 61 Gender: M : 1960 Exam Date: 12/05/2021 08:02 Exam Location: [place] [facility] Ht (in): 73 Wt (lb): 252 Ordering Physician: Mykel Duong MD ([id number]) Attending/Referring Phys: Interrelated Special Education Teacher Lolis Sanders RDCS Procedure CPT: Indications: ACS Cardiac Hx: Technical Quality: Technically difficult study Contrast 1: Lumason Total Dose (mL): 1 Contrast 2: Agitated Saline Total Dose (mL): 1 MEASUREMENTS (Male / Female) Normal Values 2D ECHO LV Diastolic Diameter PLAX 3.6 cm 4.2 - 5.9 / 3.9 - 5.3 cm LV Systolic Diameter PLAX 1.7 cm IVS Diastolic Thickness 1.7 cm 0.6 - 1.0 / 0.6 - 0.9 cm LVPW Diastolic Thickness 2.0 cm 0.6 - 1.0 / 0.6 - 0.9 cm LV Relative Wall Thickness 1.0 LA Volume 71.7 cm??? 18 - 58 / 22 - 52 cm??? M-MODE Aortic Root Diameter MM 4.1 cm LA Systolic Diameter MM 4.0 cm LA Ao Ratio MM 1.0 MV E Point Septal Separation 0.9 cm AV Cusp Separation MM 2.5 cm DOPPLER AV Peak Velocity 155.6 cm/s AV Peak Gradient 9.7 mmHg AI Peak Velocity 268.1 cm/s AI Peak Gradient 28.7 mmHg AI Pressure Half Time 503.9 ms MV Area PHT 5.4 cm??? MR Peak Velocity 595.6 cm/s MR Peak Gradient 141.9 mmHg Mitral E Point Velocity 92.4 cm/s Mitral A Point Velocity 57.3 cm/s Mitral E to A Ratio 1.6 MV Deceleration Time 140.9 ms MV E' Velocity 4.9 cm/s Mitral E to MV E' Ratio 18.7 TR Peak Velocity 227.0 cm/s TR Peak Gradient 20.6 mmHg Right Ventricular Systolic Press 24.0 mmHg FINDINGS Left Ventricle Moderately increased septal wall thickness. Grade 2 diastolic dysfunction. Left ventricular ejection fraction is estimated at 55-60 %. Left ventricular cavity size normal. Right Ventricle Normal right ventricular size and function. Right Atrium Normal right atrial size. Left Atrium Moderately increased left atrial volume. Mildly increased left atrial area. Mitral Valve Mild mitral regurgitation. Aortic Valve Trileaflet aortic valve. Trace aortic regurgitation. Tricuspid Valve Mild tricuspid regurgitation. No evidence of pulmonary hypertension. Pulmonic Valve Pulmonic valve not well visualized. Pericardium No pericardial effusion. Aorta Aortic dilatation measuring 4.1 cm CONCLUSIONS Concentric left ventricular hypertrophy with normal LV systolic function. Left atrial enlargement. Dilated aortic root measuring 4.1 cm Previewed by: Dr. Jeffry Lincoln MD (Electronically Signed) Final Date: 05 December 2021 11:31
[2021-12-05 11:45] VITALS: BP 152/92; PULSE 79; RESP 14; TEMP 98.1
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
== END 2021-12-05 15:01 | disposition home or self-care (01) | DRG 247 ==
LOC: EC 10:25 → 3SCARD 11:01 → 2SICU 12:34
PROVIDERS: ADMIT Hospitalist; ATTEND Hospitalist
PROC: 027135Z Dilation of Coronary Artery, Two Arteries with Two Drug-eluting Intraluminal Devices, Percutaneous Approach (ICD-10-PCS; principal; 2021-12-03 11:06)
PROC: 4A023N7 Measurement of Cardiac Sampling and Pressure, Left Heart, Percutaneous Approach (ICD-10-PCS; principal; 2021-12-03 11:06)
PROC: B2111ZZ Fluoroscopy of Multiple Coronary Arteries using Low Osmolar Contrast (ICD-10-PCS; principal; 2021-12-03 11:06)
PROC: 02C03ZZ Extirpation of Matter from Coronary Artery, One Artery, Percutaneous Approach (ICD-10-PCS; principal; 2021-12-03 11:06)
PROC: B41F1ZZ Fluoroscopy of Right Lower Extremity Arteries using Low Osmolar Contrast (ICD-10-PCS; principal; 2021-12-03 11:06)
DX: I21.19 ST elevation (STEMI) myocardial infarction involving other coronary artery of inferior wall (principal); N17.9 Acute kidney failure, unspecified; I48.92 Unspecified atrial flutter; E78.00 Pure hypercholesterolemia, unspecified; I48.0 Paroxysmal atrial fibrillation; I25.10 Atherosclerotic heart disease of native coronary artery without angina pectoris; I10 Essential (primary) hypertension; I34.0 Nonrheumatic mitral (valve) insufficiency; I25.2 Old myocardial infarction; T50.916A Underdosing of multiple unspecified drugs, medicaments and biological substances, initial encounter; Z91.128 Patient's intentional underdosing of medication regimen for other reason; F17.210 Nicotine dependence, cigarettes, uncomplicated; Z71.6 Tobacco abuse counseling; Z79.01 Long term (current) use of anticoagulants; Z79.899 Other long term (current) drug therapy; Z95.5 Presence of coronary angioplasty implant and graft; Z87.828 Personal history of other (healed) physical injury and trauma; Z82.49 Family history of ischemic heart disease and other diseases of the circulatory system; Z81.8 Family history of other mental and behavioral disorders
CPT/HCPCS: 36415; 71045; 76770; 80048; 80053; 81003; 83735; 84484; 85025; 85610; 85730; 93005; 93306; 93458; 96374; 96375; 99291

== ENCOUNTER 2023-03-29 17:30 | Emergency (ER) | payer BC, OTHER ==
[2023-03-29 18:12] VITALS: RESP 16
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
[2023-03-29] MEDS ORDERED: ACET/COD 300 MG/30 MG STARTER PACK 6 TAB BTL PO STA (21:01)
[2023-03-29 21:17] VITALS: BP 135/94; PULSE 75; TEMP 98.3
== END 2023-03-29 21:13 | disposition home or self-care (01) ==
LOC: EC 17:30
DX: S22.32XA Fracture of one rib, left side, initial encounter for closed fracture (principal); I48.91 Unspecified atrial fibrillation; F17.200 Nicotine dependence, unspecified, uncomplicated; W05.2XXA Fall from non-moving motorized mobility scooter, initial encounter
CPT/HCPCS: 71250; 99283

== ENCOUNTER 2023-11-25 19:41 | Emergency (ER) | payer BC, OTHER ==
[2023-11-25 21:31] LABS: Basophils % (A) 1 %; Eosinophils # (A) 0.2 k/uL (0-0.7); Eosinophils % (A) 3 %; HCT 44.7 % (39.0-53.0); HGB 14.7 gm/dL (13.0-17.5); Lymphocytes # (A) 1.9 k/uL (1.0-4.8); Lymphocytes % (A) 25 %; MCHC 32.9 g/dL (31.0-37.0); MCV 91.2 fL (80.0-100.0); Mean Platelet Volume 7.2; Monocytes # (A) 0.5 k/uL (0-1.0); Monocytes % (A) 6 %; Neutrophils # (A) 4.6 k/uL (1.3-7.7); Neutrophils % (A) 62 %; Platelet Count 262 k/uL (150-450); RDW 14.2 % (11.5-15.5); WBC 7.4 k/uL (3.8-10.6)
--- NOTE | 2023-11-25 22:01 | CT ---
EXAMINATION TYPE: CT brain wo con CT DLP: 1184.4 mGycm, Automated exposure control for dose reduction was used. DATE OF EXAM: 11/25/2023 9:46 PM COMPARISON: . CLINICAL INDICATION:Male, 63 years old with history of Neuro deficit, acute, stroke suspected, Patien t states that he has left side facial swelling that goes to his neck and eye. TECHNIQUE: Brain: Axial CT images of the brain were obtained with coronal and sagittal reformats created and rev iewed. Contrast used: None. Oral contrast used: None. FINDINGS: Brain: Extra-axial spaces: No abnormal extra-axial fluid collections. Ventricular system: Within normal limits Cerebral parenchyma: No acute intraparenchymal hemorrhage or mass effect. The ndiaye-white junction is well differentiated. Cerebellum: Unremarkable. Mass effect: No evidence of midline shift. Intracranial vasculature: unremarkable Soft tissues: Normal. Calvarium/osseous structures: No depressed skull fracture. Paranasal sinuses and mastoid air cells: Anterior ethmoids are partially opacified. Remainder paranas al sinuses are predominantly clear. Visualized orbits: Orbital contents are intact. IMPRESSION: No acute intracranial process.
--- NOTE | 2023-11-25 22:04 | XR ---
EXAMINATION TYPE: XR chest 2V DATE OF EXAM: 11/25/2023 9:54 PM CLINICAL INDICATION:Male, 63 years old with history of altered mental status; [facility]. COMPARISON: Chest radiographs from 12/03/2021. TECHNIQUE: XR chest 2V Frontal and lateral views of the chest. FINDINGS: Lungs/Pleura: There is no evidence of pleural effusion, focal consolidation, or pneumothorax. Pulmonary vascularity: Unremarkable. Heart/mediastinum: Cardiomediastinal silhouette is unremarkable. Musculoskeletal: No acute osseous pathology. Other findings: None Lines/Tubes: IMPRESSION: No acute cardiopulmonary disease/process.
[2023-11-25 22:23] LABS: ALT 35 U/L (4-49); AST 32 U/L (17-59); African American GFR (CKD) >90 (>60 ml/min/1.73 sqM); Albumin 4.1 g/dL (3.5-5.0); Alkaline Phosphatase 105 U/L (38-126); Anion Gap 7 mmol/L; Blood Urea Nitrogen 20 mg/dL (9-20); Calcium 9.5 mg/dL (8.4-10.2); Carbon Dioxide 23 mmol/L (22-30); Chloride 108 mmol/L (98-107); Glucose 81 mg/dL (74-99); Non-African American GFR(CKD) 81 (>60 ml/min/1.73 sqM); Potassium 4.6 mmol/L (3.5-5.1); Sodium 138 mmol/L (137-145); Total Bilirubin 1.1 mg/dL (0.2-1.3); Total Protein 7.2 g/dL (6.3-8.2)
--- NOTE | 2023-11-25 22:26 | CT ---
EXAMINATION TYPE: CT angio head neck CT DLP: 709 mGycm, Automated exposure control for dose reduction was used. DATE OF EXAM: 11/25/2023 9:54 PM COMPARISON: Noncontrast CT brain today.. CLINICAL INDICATION:Male, 63 years old with history of Neuro deficit, acute, stroke suspected; PHCar, P atient states that he has left side facial swelling that goes to his neck and eye. TECHNIQUE: Axially acquired helical CT angiogram of the head and neck was obtained with contrast. Axi al images are supplemented with 3D reconstructions and MIP images which were post-processed at an in dependent workstation. NASCET criteria used. Contrast used:65 mL of Isovue 370 with IV Contrast, Oral contrast used: None. FINDINGS: Faintly discernible left eyelid swelling. No swelling appreciated in the subcutaneous left neck. No a rtifact from the dental fillings and/or bridges skewers part of the left and right mandible soft tiss ues. Inferior to the left mandible subcutaneous fat appears clear. CTA HEAD: No evidence of acute intracranial hemorrhage, mass effect, or midline shift. The ventricles, sulci, a nd cisterns are unremarkable. Minimal left and right carotid bifurcation plaque. The visualized portions of the internal carotid ar teries, middle cerebral arteries, anterior cerebral arteries, and posterior cerebral arteries are pat ent. The basilar and vertebral arteries are patent. Vertebral arteries are co- dominant. CTA NECK: Right Carotid System: The common carotid artery and external carotid artery are patent. The carotid bifurcation demonstrate s no evidence of hemodynamically significant stenosis. The remaining portions of the internal carotid artery demonstrate normal size without significant narrowing. Left Carotid System: The common carotid artery and external carotid artery are patent. The carotid bifurcation demonstrate s no evidence of hemodynamically significant stenosis. The remaining portions of the internal carotid artery demonstrate normal size without significant narrowing. Vertebral arteries are patent without evidence hemodynamically significant stenosis. There is a three-vessel aortic arch. The origins of the great vessels are patent. No evidence of hemo dynamically significant stenosis. Upper thorax: IMPRESSION: 1. No evidence of dissection of the cervical internal carotid arteries or vertebral arteries or any e vidence of significant stenosis at the carotid bifurcations. 2. No evidence of intracranial high-grade stenosis or intracranial aneurysm. 3. Vague suggestion of edema in the left eyelid. No cellulitis appreciated in the subcutaneous fat of the left neck.
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
[2023-11-25] MEDS: predniSONE 20 MG TAB PO STA (23:50)
[2023-11-25] MEDS: ARTIFICIAL TEARS OINTMENT 3.5 GM TUBE BOTH EYES STA (23:51)
[2023-11-25] MEDS: valACYclovir HCL 1,000 MG TABLET PO STA (23:51)
[2023-11-25 23:54] VITALS: BP 139/66; PULSE 61; RESP 18; TEMP 98.7
== END 2023-11-25 23:54 | disposition home or self-care (01) ==
LOC: EC 19:41
DX: G51.0 Bell's palsy (principal); I48.91 Unspecified atrial fibrillation; F17.200 Nicotine dependence, unspecified, uncomplicated; Z82.49 Family history of ischemic heart disease and other diseases of the circulatory system
CPT/HCPCS: 36415; 93005; 80053; 85025; 71046; 70496; 70450; 70498; 99284; J7512

== ENCOUNTER 2024-03-05 12:07 | Emergency (ER) | payer SELFPAY ==
[2024-03-05 12:15] VITALS: BP 143/91; PULSE 73; RESP 20; TEMP 97.5
[2024-03-05 12:38] LABS: Basophils # (A) 0.1 k/uL (0-0.2); Basophils % (A) 1 %; Eosinophils # (A) 0.3 k/uL (0-0.7); Eosinophils % (A) 3 %; HCT 48.5 % (39.0-53.0); HGB 16.2 gm/dL (13.0-17.5); Lymphocytes # (A) 2.2 k/uL (1.0-4.8); Lymphocytes % (A) 28 %; MCHC 33.3 g/dL (31.0-37.0); MCV 89.9 fL (80.0-100.0); Mean Platelet Volume 7.4; Monocytes # (A) 0.5 k/uL (0-1.0); Monocytes % (A) 6 %; Neutrophils # (A) 4.5 k/uL (1.3-7.7); Neutrophils % (A) 59 %; Platelet Count 219 k/uL (150-450); RBC 5.39 m/uL (4.30-5.90); RDW 14.8 % (11.5-15.5); WBC 7.6 k/uL (3.8-10.6)
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
[2024-03-05 12:53] LABS: Partial Thromboplastin Time 23.3 sec (22.0-30.0); Prothrombin Time 11.1 sec (10.0-12.5)
[2024-03-05] MEDS: ASPIRIN 81 MG PO STA (12:54)
[2024-03-05] MEDS: NITROGLYCERIN OINT 1 INCH/GM PACKET TOPICAL STA (12:56)
[2024-03-05] MEDS: NITROGLYCERIN SL TABS 0.4 MG TAB SUBLINGUAL STA (12:56)
[2024-03-05 12:58] LABS: ALT 23 U/L (4-49); AST 24 U/L (17-59); African American GFR (CKD) >90 (>60 ml/min/1.73 sqM); Albumin 4.1 g/dL (3.5-5.0); Alkaline Phosphatase 91 U/L (38-126); Anion Gap 7 mmol/L; Blood Urea Nitrogen 17 mg/dL (9-20); Calcium 9.3 mg/dL (8.4-10.2); Carbon Dioxide 23 mmol/L (22-30); Chloride 107 mmol/L (98-107); Glucose 152 mg/dL (74-99); Magnesium 2.1 mg/dL (1.6-2.3); Non-African American GFR(CKD) 86 (>60 ml/min/1.73 sqM); Potassium 4.1 mmol/L (3.5-5.1); Sodium 137 mmol/L (137-145); Total Bilirubin 0.8 mg/dL (0.2-1.3); Total Protein 6.9 g/dL (6.3-8.2)
--- NOTE | 2024-03-05 13:02 | XR ---
EXAMINATION TYPE: XR chest 2V DATE OF EXAM: 03/05/2024 COMPARISON: NONE CLINICAL INDICATION: Male, 63 years old with history of Chest Pain; , TECHNIQUE: XR chest 2V views of the chest. FINDINGS: The lungs are clear and there is no pneumothorax, pleural effusion, or focal pneumonia. Heart size normal and no overt failure. Deformity of the left mid rib cage. Stable. Degenerative changes of the spine. Generalized demineralization. IMPRESSION: 1. No acute process. [facility], , 03/05/2024 1:00 PM
== END 2024-03-05 13:24 | disposition left against medical advice (07) ==
LOC: EC 12:07
DX: R07.9 Chest pain, unspecified (principal); I10 Essential (primary) hypertension; F17.210 Nicotine dependence, cigarettes, uncomplicated; Z79.899 Other long term (current) drug therapy; Z53.29 Procedure and treatment not carried out because of patient's decision for other reasons
CPT/HCPCS: 36415; 71046; 80053; 83735; 84484; 85025; 85610; 85730; 93005; 99285